=== PATIENT | female | born 1940 | race Caucasian/White ===

== ENCOUNTER 2024-12-04 10:26 | Inpatient (IN) | payer MEDICARE ==
[2024-12-04] MEDS ORDERED: Acetaminophen 500 MG TAB ONE (11:35)
[2024-12-04] MEDS ORDERED: HYDROmorphone 0.5 MG/0.5 ML SYRINGE ONE (11:35)
[2024-12-04 12:02] LABS: ALT (SGPT) 20 U/L (Less than 34); AST (SGOT) 32 U/L (11-34); Albumin 3.2 g/dL (3.1-4.5); Alkaline Phosphatase 61 U/L (40-110); Anion Gap 17 mmol/L (10-20); BUN (Urea Nitrogen) 19 mg/dL (9.8-20.1); Bilirubin, Total 0.5 mg/dL (0.3-1.2); CK (CPK) 204 U/L (29-168); Calc. Creatinine Clearance 0 mL/min (70-130); Calcium 8.9 mg/dL (7.8-10.44); Carbon Dioxide 21 mmol/L (23-31); Chloride 105 mmol/L (98-107); Estimated GFR 48; Globulin 3.2 g/dL (2.4-3.5); Glucose 233 mg/dL (83-110); Potassium 4.9 mmol/L (3.5-5.1); Protein, Total 6.4 g/dL (5.8-8.1); Sodium 138 mmol/L (136-145)
[2024-12-04 12:05] LABS: Troponin I Less than 0.010 ng/mL (< 0.028)
[2024-12-04 12:07] LABS: #Basophils Less than 0.03 10x3/uL (0.0-0.2); #Eosinophils Less than 0.03 10x3/uL (0.0-0.7); %Basophils 0.2 % (0.0-1.0); %Eosinophils 0.2 % (0.0-10.0); %Lymphocytes 12.3 % (21.0-51.0); %Monocytes 7.5 % (0.0-10.0); %Neutrophils 79.3 % (42.0-75.0); Hematocrit 31.8 % (36.0-47.0); Hemoglobin 10.5 g/dL (12.0-16.0); Mean Corpuscular Hemoglobin 31.6 pg (27.0-31.0); Mean Corpuscular Volume 95.8 fL (78.0-98.0); Platelet Count 131 10x3/uL (130-400); RBC Distribution Width 12.7 % (11.5-14.5); Red Blood Cell (RBC) Count 3.32 mill/uL (4.20-5.40)
[2024-12-04] MEDS ORDERED: Dextrose 5% in Water 1,000 ML IV PRN (12:23)
[2024-12-04] MEDS ORDERED: hydrALAZINE 20 MG/ML VIAL SLOW IVP PRN (12:23)
[2024-12-04] MEDS ORDERED: Glucagon 1 MG/ML KIT IM PRN (12:23)
[2024-12-04] MEDS ORDERED: Ondansetron ODT 4 MG TAB PO PRN (12:23)
[2024-12-04] MEDS ORDERED: Ondansetron PF 4 MG/2 ML Vial IVP PRN (12:23)
[2024-12-04] MEDS ORDERED: Dextrose 50% Abboject 50 ML SYRINGE SLOW IVP PRN (12:23)
[2024-12-04] MEDS ORDERED: CEFAZOLIN 2 GM VIAL ONE (13:48)
[2024-12-04] MEDS ORDERED: Lidocaine 1% PF 5 ML VIAL ONE (13:50)
[2024-12-04] MEDS ORDERED: Rocuronium Bromide 10 MG/ML (10ML VIAL) ONE (13:50)
[2024-12-04] MEDS ORDERED: PROPOFOL 20 ML ONE (13:50)
[2024-12-04] MEDS ORDERED: fentaNYL PF 100 MCG/2 ML SYRINGE ONE (13:50)
[2024-12-04] MEDS ORDERED: Dexamethasone 4 mg/ml Vial ONE (14:31)
[2024-12-04] MEDS ORDERED: Ondansetron PF 4 MG/2 ML Vial ONE (14:31)
[2024-12-04] MEDS ORDERED: SUGAMMADEX SODIUM 200 MG/2 ML VIAL ONE (14:37)
[2024-12-04] MEDS ORDERED: PHENYLEPHRINE-NS 100 MCG/ML 10 ML SYRINGE ONE (14:51)
[2024-12-04 17:02] VITALS: BMI 15.7
[2024-12-04] MEDS: Morphine 2 MG/ML VIAL SLOW IVP PRN (17:56)
[2024-12-04] MEDS: Nicotine 21 MG PATCH TD SCH (17:56)
[2024-12-04] MEDS: Insulin Lispro 100 UNIT/ML 10 ML VIAL SC PRN (18:20)
[2024-12-04] MEDS: traMADol HCl 50 MG TAB PO PRN (19:03)
[2024-12-04] MEDS: Atorvastatin Calcium 20 MG TAB PO SCH (21:34)
[2024-12-04] MEDS: Methocarbamol 500 MG TAB PO PRN (21:34)
[2024-12-04] MEDS: CEFAZOLIN 2 GM in Sodium Chloride 0.9% 100 ML IVPB SCH (21:34)
[2024-12-05] MEDS: CEFAZOLIN 2 GM in Sodium Chloride 0.9% 100 ML IVPB SCH (06:02)
[2024-12-05 07:18] LABS: #Basophils Less than 0.03 10x3/uL (0.0-0.2); #Eosinophils Less than 0.03 10x3/uL (0.0-0.7); %Basophils 0.1 % (0.0-1.0); %Lymphocytes 14.7 % (21.0-51.0); %Monocytes 4.9 % (0.0-10.0); %Neutrophils 79.9 % (42.0-75.0); Hematocrit 24.9 % (36.0-47.0); Hemoglobin 8.1 g/dL (12.0-16.0); Mean Corpuscular HGB CONC 32.5 g/dL (32.0-36.0); Mean Corpuscular Hemoglobin 31.8 pg (27.0-31.0); Mean Corpuscular Volume 97.6 fL (78.0-98.0); Mean Platelet Volume 10.3 fL (7.4-10.4); Platelet Count 133 10x3/uL (130-400); RBC Distribution Width 12.9 % (11.5-14.5); Red Blood Cell (RBC) Count 2.55 mill/uL (4.20-5.40)
[2024-12-05 07:46] LABS: Anion Gap 18 mmol/L (10-20); BUN (Urea Nitrogen) 41 mg/dL (9.8-20.1); Calc. Creatinine Clearance 17 mL/min (70-130); Calcium 8.5 mg/dL (7.8-10.44); Carbon Dioxide 21 mmol/L (23-31); Chloride 105 mmol/L (98-107); Estimated GFR 26; Glucose 354 mg/dL (83-110); Sodium 139 mmol/L (136-145)
[2024-12-05] MEDS: Insulin Glargine 30 UNITS/0.3 ML VIAL SC SCH (08:17)
[2024-12-05] MEDS: Insulin Lispro 100 UNIT/ML 10 ML VIAL SC SCH ×3 (08:17→17:17)
[2024-12-05] MEDS: Lactated Ringer's 1,000 ML IV SCH (09:56)
[2024-12-05] MEDS: TETANUS, DIPHTHERIA TOX,ADULT (TDVAX) 0.5 ML VIAL IM ONE (14:16)
[2024-12-05] MEDS: Acetaminophen 325 MG TAB PO PRN (18:18)
[2024-12-05] MEDS: Heparin 5,000 UNITS/ML VIAL SC SCH (20:26)
[2024-12-05] MEDS: Insulin Lispro 100 UNIT/ML 10 ML VIAL SC PRN (22:34)
[2024-12-06 06:00] LABS: #Basophils Less than 0.03 10x3/uL (0.0-0.2); %Basophils 0.1 % (0.0-1.0); %Eosinophils 0.2 % (0.0-10.0); %Lymphocytes 22.2 % (21.0-51.0); %Monocytes 10.3 % (0.0-10.0); %Neutrophils 66.6 % (42.0-75.0); Hematocrit 18.9 % (36.0-47.0); Hemoglobin 6.1 g/dL (12.0-16.0); Mean Corpuscular HGB CONC 32.3 g/dL (32.0-36.0); Mean Corpuscular Hemoglobin 31.4 pg (27.0-31.0); Mean Corpuscular Volume 97.4 fL (78.0-98.0); Mean Platelet Volume 10.5 fL (7.4-10.4); Platelet Count 114 10x3/uL (130-400); RBC Distribution Width 13.1 % (11.5-14.5); Red Blood Cell (RBC) Count 1.94 mill/uL (4.20-5.40)
[2024-12-06 06:33] LABS: Anion Gap 11 mmol/L (10-20); BUN (Urea Nitrogen) 50 mg/dL (9.8-20.1); Calc. Creatinine Clearance 22 mL/min (70-130); Calcium 7.9 mg/dL (7.8-10.44); Carbon Dioxide 25 mmol/L (23-31); Chloride 105 mmol/L (98-107); Estimated GFR 33; Glucose 451 mg/dL (83-110); Potassium 5.1 mmol/L (3.5-5.1); Sodium 136 mmol/L (136-145)
[2024-12-06] MEDS: Insulin Lispro 100 UNIT/ML 10 ML VIAL SC SCH (06:35)
[2024-12-06] MEDS ORDERED: Insulin Lispro 100 UNIT/ML 10 ML VIAL SC PRN (08:45)
[2024-12-06] MEDS: Insulin Glargine 30 UNITS/0.3 ML VIAL SC SCH (08:52)
[2024-12-07 05:33] LABS: Hemoglobin A1c 6.1 % (4.0-6.0)
[2024-12-07 05:42] LABS: Anion Gap 12 mmol/L (10-20); BUN (Urea Nitrogen) 36 mg/dL (9.8-20.1); Calc. Creatinine Clearance 29 mL/min (70-130); Calcium 8.4 mg/dL (7.8-10.44); Carbon Dioxide 27 mmol/L (23-31); Chloride 105 mmol/L (98-107); Estimated GFR 47; Glucose 322 mg/dL (83-110); Potassium 4.9 mmol/L (3.5-5.1); Sodium 139 mmol/L (136-145)
[2024-12-07 05:56] LABS: #Basophils 0.03 10x3/uL (0.0-0.2); %Basophils 0.3 % (0.0-1.0); %Eosinophils 0.8 % (0.0-10.0); %Lymphocytes 22.6 % (21.0-51.0); %Monocytes 9.1 % (0.0-10.0); %Neutrophils 66.8 % (42.0-75.0); Hematocrit 28.6 % (36.0-47.0); Hemoglobin 9.7 g/dL (12.0-16.0); Mean Corpuscular HGB CONC 33.9 g/dL (32.0-36.0); Mean Corpuscular Hemoglobin 31.5 pg (27.0-31.0); Mean Corpuscular Volume 92.9 fL (78.0-98.0); Mean Platelet Volume 10.1 fL (7.4-10.4); Platelet Count 107 10x3/uL (130-400); RBC Distribution Width 15.4 % (11.5-14.5); Red Blood Cell (RBC) Count 3.08 mill/uL (4.20-5.40)
[2024-12-07 13:00] VITALS: BMI 15.7
[2024-12-07 16:02] LABS: Hematocrit 29.7 % (36.0-47.0); Hemoglobin 9.9 g/dL (12.0-16.0); Platelet Count 118 10x3/uL (130-400)
[2024-12-07] MEDS: Insulin Glargine 30 UNITS/0.3 ML VIAL SC SCH (17:44)
[2024-12-07 19:28] VITALS: BP 127/63; TEMP 98.8
[2024-12-07] MEDS ORDERED: Insulin Glargine 30 UNITS/0.3 ML VIAL SC SCH (21:00)
== END 2024-12-07 19:49 | DRG 480 ==
LOC: ERS 10:26 → SDC/OP 13:31 → SURG B 16:32
PROVIDERS: ADMIT Surgery; ATTEND Surgery
PROC: 0QS706Z Reposition Left Upper Femur with Intramedullary Internal Fixation Device, Open Approach (ICD-10-PCS; principal; 2024-12-04)
DX: S72.142A Displaced intertrochanteric fracture of left femur, initial encounter for closed fracture (principal); E43 Unspecified severe protein-calorie malnutrition; Z68.1 Body mass index [BMI] 19.9 or less, adult; W18.30XA Fall on same level, unspecified, initial encounter; E78.5 Hyperlipidemia, unspecified; F17.210 Nicotine dependence, cigarettes, uncomplicated; Z88.8 Allergy status to other drugs, medicaments and biological substances; E11.40 Type 2 diabetes mellitus with diabetic neuropathy, unspecified; Z90.49 Acquired absence of other specified parts of digestive tract; Z79.4 Long term (current) use of insulin; Z79.899 Other long term (current) drug therapy; D64.9 Anemia, unspecified; Z71.6 Tobacco abuse counseling; E11.65 Type 2 diabetes mellitus with hyperglycemia
CPT/HCPCS: 36415; 36416; 36430; 72170; 80048; 80053; 82550; 83036; 84484; 85025; 86850; 86900; 86901; 93005; 96374; C1713; G0390; J1100; J1171; J1644; J1815; J2272; J2405; J2704; J7120; P9016; P9059